=== PATIENT | male | born 1980 | race Caucasian/White ===

== ENCOUNTER 2016-11-01 08:29 | Emergency (ER) | payer MEDICAID ==
[~2016-11-01] VITALS: Ht 167.6 cm; Wt 83.0 kg
[2016-11-01 08:32] VITALS: Ht 167.6 cm; Wt 83.0 kg
[2016-11-01] MEDS ORDERED: ACETAMINOPHEN 325 MG TAB PO STA (09:07)
[2016-11-01] MEDS ORDERED: SOD CHLORIDE 0.9% 500 ML IV STA (09:07)
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
--- NOTE | 2016-11-01 09:49 | RADRPT ---
PROCEDURE: CT Brain without contrast. CLINICAL INDICATION: Syncope, headache, nausea and vomiting. TECHNIQUE: A CT of the brain was performed on a GE [employer]ance 64-slice CT scanner utilizing axial imaging from the skull base through the vertex without IV contrast. Multiplanar reformatted images were made. Images were reviewed on a PACS workstation. The CTDIvol is 43.16 mGy and the DLP is 720 .23 mGycm. One or the following dose reduction techniques were used: -Automated exposure control. -Adjustment of the mA and/or KV according to patient's size. -Use of iterative reconstruction technique. COMPARISON: None FINDINGS: There is no intracranial hemorrhage, mass effect, or midline shift. No extra-axial fluid collection is seen. The ventricles and sulci are normal in size and configuration. The density of the brain is normal, and the mcintosh white matter differentiation appears well-preserved. The visualized paranasal sinuses and osseous structures are grossly unremarkable. IMPRESSION: 1. No acute intracranial process identified. RPTAT: [facility] Physician Tess Date Time Electronically viewed and signed by Physician Tess on 11/01/2016 09:49 /
--- NOTE | 2016-11-01 09:55 | RADRPT ---
PROCEDURE: Chest Radiograph. CLINICAL INDICATION: Syncope TECHNIQUE: Single frontal chest radiograph. COMPARISON: 05/14/2013 FINDINGS: The cardiomediastinal silhouette is within normal limits. No infiltrate or effusion is seen. Th e bones are intact. IMPRESSION: 1. Unremarkable chest radiograph. RPTAT: KK .Kalen Tenorio MD, MD Date Time Electronically viewed and signed by .Kalen Tenorio MD, on 11/01/2016 09:55 .B/
[2016-11-01 09:57] LABS: ADD SCAN DIFF NO
[2016-11-01 10:05] LABS: BASOPHILS % 0.2 % (0.0-2.0); EOSINOPHILS # 0.1 10^3/ul (0.0-0.5); EOSINOPHILS % 0.8 % (0.0-7.0); HEMATOCRIT 49.5 % (42.0-52.0); HEMOGLOBIN 16.3 g/dl (14.0-18.0); LYMPHOCYTES # 1.7 10^3/ul (0.8-2.9); MEAN CORPUSCULAR HEMOGLOBIN 28.5 pg (29.0-33.0); MEAN CORPUSCULAR HGB CONC 32.9 g/dl (32.0-37.0); MEAN CORPUSCULAR VOLUME 86.5 fl (82.0-101.0); MEAN PLATELET VOLUME 9.4 fl (7.4-10.4); MONOCYTE # 0.6 10^3/ul (0.3-0.9); MONOCYTES % 6.8 % (0.0-11.0); PLATELET COUNT 299 10^3/UL (140-415); RED BLOOD COUNT 5.72 10^6/ul (4.70-6.10); RED CELL DISTRIBUTION WIDTH 13.8 % (11.5-14.5); WHITE BLOOD COUNT 8.3 10^3/ul (4.8-10.8)
[2016-11-01 10:23] LABS: ANION GAP 16 (8-16); BLOOD UREA NITROGEN 16 mg/dl (7-20); CALCIUM 9.5 mg/dl (8.4-10.2); CARBON DIOXIDE 27 mmol/L (21-31); CHLORIDE 101 mmol/L (97-110); CREATININE 0.82 mg/dl (0.61-1.24); GLUCOSE 106 mg/dl (70-220); POTASSIUM 3.9 mmol/L (3.5-5.1); SODIUM 140 mmol/L (135-144)
[2016-11-01 10:27] LABS: ETHANOL < 10.0 mg/dl
[2016-11-01 10:45] LABS: TROPONIN-I < 0.012 ng/ml (0.00-0.12)
[2016-11-01 12:41] VITALS: BP 111/72; PULSE 60; RESP 16
== END 2016-11-01 12:42 | disposition home or self-care (01) ==
LOC: E/R 08:29
DX: R56.9 Unspecified convulsions (principal); R55 Syncope and collapse; R07.89 Other chest pain
CPT/HCPCS: 36415; 70450; 71010; 80048; 80306; 82962; 84484; 85025; 93005; J7040; Z7502; Z7610

== ENCOUNTER 2017-05-02 22:34 | Emergency (ER) | payer SELFPAY ==
[~2017-05-02] VITALS: Ht 167.6 cm; Wt 79.7 kg
[2017-05-02 22:40] VITALS: Ht 167.6 cm; Wt 79.7 kg
[2017-05-03] MEDS ORDERED: KETOROLAC 30 MG INJ IV STA (00:16)
[2017-05-03 00:45] LABS: BASOPHILS % 0.2 % (0.0-2.0); EOSINOPHILS # 0.3 10^3/ul (0.0-0.5); EOSINOPHILS % 3.3 % (0.0-7.0); HEMATOCRIT 46.4 % (42.0-52.0); HEMOGLOBIN 15.7 g/dl (14.0-18.0); LYMPHOCYTES # 3.2 10^3/ul (0.8-2.9); LYMPHOCYTES % 39.5 % (15.0-51.0); MEAN CORPUSCULAR HEMOGLOBIN 28.9 pg (29.0-33.0); MEAN CORPUSCULAR HGB CONC 33.8 g/dl (32.0-37.0); MEAN CORPUSCULAR VOLUME 85.3 fl (82.0-101.0); MEAN PLATELET VOLUME 9.4 fl (7.4-10.4); MONOCYTE # 0.8 10^3/ul (0.3-0.9); MONOCYTES % 9.4 % (0.0-11.0); NEUTROPHIL # 3.9 10^3/ul (1.6-7.5); NEUTROPHILS % 47.4 % (39.0-77.0); PLATELET COUNT 288 10^3/UL (140-415); RED BLOOD COUNT 5.44 10^6/ul (4.70-6.10); RED CELL DISTRIBUTION WIDTH 13.3 % (11.5-14.5); WHITE BLOOD COUNT 8.2 10^3/ul (4.8-10.8)
[2017-05-03 01:20] LABS: ALBUMIN 4.5 g/dl (3.3-4.9); ALBUMIN/GLOBULIN RATIO 1.21; BILIRUBIN,INDIRECT 0.3 mg/dl (0-1.1); BILIRUBIN,TOTAL 0.3 mg/dl (0.2-1.3); CALCIUM 9.7 mg/dl (8.4-10.2); CREATININE 0.91 mg/dl (0.61-1.24); TOTAL PROTEIN 8.2 g/dl (6.1-8.1)
[2017-05-03 01:28] LABS: ADD UMIC YES; UR ASCORBIC ACID NEGATIVE (NEGATIVE); UR BILIRUBIN (Dip) NEGATIVE (NEGATIVE); UR BLOOD (Dip) 2+ mg/dL (NEGATIVE); UR CLARITY CLEAR (CLEAR); UR COLOR YELLOW (YELLOW); UR GLUCOSE (Dip) NEGATIVE (NEGATIVE); UR KETONES (Dip) NEGATIVE (NEGATIVE); UR LEUKOCYTE ESTERASE (Dip) NEGATIVE Leu/ul (NEGATIVE); UR NITRITE (Dip) NEGATIVE (NEGATIVE); UR RBC 2 /HPF (0-5); UR SPECIFIC GRAVITY (Dip) 1.018 (1.003-1.030); UR TOTAL PROTEIN (Dip) NEGATIVE (NEGATIVE); UR UROBILINOGEN (Dip) NEGATIVE (NEGATIVE)
--- NOTE | 2017-05-03 02:37 | RADRPT ---
PROCEDURE: US Renal CLINICAL INDICATION: Pain TECHNIQUE: Multiple sonographic images of the kidneys and bladder were obtained. Evaluation of th e kidneys and bladder was performed as well with mcintosh scale and color and Doppler evaluation using a curved array transducer. The images were reviewed on a high-resolution PACS workstation. COMPARISON: No prior studies are available for comparison. FINDINGS: The right kidney measures 10.1 cm. The left kidney measures 11.9 cm. Renal cortical echogenicity is within normal limits. There is no mass, calculus, or obstructive uropathy. No perinephric fluid c ollection is seen. The bladder is unremarkable. IMPRESSION: 1. Unremarkable renal ultrasound. RPTAT: HMVK .Porfirio Thorne MD, Date Time Electronically viewed and signed by .Porfirio Thorne MD, MD on 05/03/2017 02:37 .K/
[2017-05-03] MEDS ORDERED: ACET500C5 PO (02:45)
--- NOTE | 2017-05-03 02:55 | ERD ---
ER Documentation Chief Complaint Chief Complaint left abdominal pain x 3 days HPI 29-year-old male complaining of left lower quadrant abdominal pain 3 days. Patient stated the pain is constant, but worse after he eats. His last meal was at 4 PM. He took Zantac at home without relief of pain. The pain is sharp. Patient stated that he felt bloated today. Patient has regular bowel movements, last BM was this morning. Denies fever or chills. Denies dysuria. Denies any prior medical history. ROS All systems reviewed and are negative except as per history of present illness. Medications Home Meds Active Scripts Acetaminophen* (Tylophen*) 500 Mg Capsule, 1 CAP PO Q6H Y for PAIN AND OR ELEVATED TEMP, #20 CAP Prov:KAILASH WISEMAN JET INSPECTOR 05/03/17 Allergies Allergies: Coded Allergies: No Known Allergy (Unverified , 05/02/17) PMhx/Soc History of Surgery: No Anesthesia Reaction: No Hx Neurological Disorder: No Hx Respiratory Disorders: No Hx Cardiac Disorders: No Hx Psychiatric Problems: No Hx Miscellaneous Medical Probl: No Hx Alcohol Use: No Hx Substance Use: No Hx Tobacco Use: No Smoking Status: Never smoker Physical Exam Vitals Vital Signs Date Time Temp Pulse Resp B/P Pulse Ox O2 Delivery O2 Flow Rate FiO2 05/02/17 22:40 98.8 72 20 143/72 100 Physical Exam General: Well-developed, well-nourished, conscious and coherent, in no distress Skin: Warm and dry without rash, good texture and turgor Head: Normocephalic without evidence of trauma Eyes: Sclera and conjunctivae normal; pupils equal, round, and reactive to light; extraocular movements are intact Chest: Normal AP diameter. Good expansion without retractions. Nontender. Lungs are clear to auscultate bilaterally with good tidal volume Heart: Regular rate and rhythm. No murmur, rub, or gallops heard Abdomen: Soft, left lower quadrant tenderness without masses, guarding, or rebound. Bowel sounds are active. No hepatosplenomegaly Back: Without spinal or CVA tenderness Pelvis: Nontender to palpation and stable to compression : Uncircumsized male. Penis normal, no penile discharge. Normal scrotum, no mass noted. No inguinal hernia. Extremities: Full range of motion. Good strength bilaterally. No clubbing, cyanosis, or edema. Peripheral pulses are intact. Sensation intact Neuro: Alert and oriented 4, GCS 15. Cranial nerves grossly intact. Motor and sensory exams nonfocal. Moves all extremities. Speech clear. Gait normal Result Diagram: 05/03/17 0020 05/03/17 0020 Results 24 hrs Laboratory Tests Test 05/03/17 00:20 White Blood Count 8.210^3/ul Red Blood Count 5.4410^6/ul Hemoglobin 15.7g/dl Hematocrit 46.4% Mean Corpuscular Volume 85.3fl Mean Corpuscular Hemoglobin 28.9pg Mean Corpuscular Hemoglobin Concent 33.8g/dl Red Cell Distribution Width 13.3% Platelet Count 80871^3/UL Mean Platelet Volume 9.4fl Neutrophils % 47.4% Lymphocytes % 39.5% Monocytes % 9.4% Eosinophils % 3.3% Basophils % 0.2% Nucleated Red Blood Cells % 0.0/100WBC Neutrophils # 3.910^3/ul Lymphocytes # 3.210^3/ul Monocytes # 0.810^3/ul Eosinophils # 0.310^3/ul Basophils # 0.010^3/ul Nucleated Red Blood Cells # 0.010^3/ul Urine Color YELLOW Urine Clarity CLEAR Urine pH 5.0 Urine Specific [place] 1.018 Urine Ketones NEGATIVEmg/dL Urine Nitrite NEGATIVEmg/dL Urine Bilirubin NEGATIVEmg/dL Urine Urobilinogen NEGATIVEmg/dL Urine Leukocyte Esterase NEGATIVELeu/ul Urine Microscopic RBC 2/HPF Urine Microscopic WBC 1/HPF Urine Hemoglobin 2+mg/dL Urine Glucose NEGATIVEmg/dL Urine Total Protein NEGATIVEmg/dl Sodium Level 141mmol/L Potassium Level 4.0mmol/L Chloride Level 101mmol/L Carbon Dioxide Level 29mmol/L Anion Gap 15 Blood Urea Nitrogen 19mg/dl Creatinine 0.91mg/dl Glucose Level 99mg/dl Calcium Level 9.7mg/dl Total Bilirubin 0.3mg/dl Direct Bilirubin 0.00mg/dl Indirect Bilirubin 0.3mg/dl Aspartate Amino Transf (AST/SGOT) 33IU/L Alanine Aminotransferase (ALT/SGPT) 35IU/L Alkaline Phosphatase 98IU/L Total Protein 8.2g/dl Albumin 4.5g/dl Globulin 3.70g/dl Albumin/Globulin Ratio 1.21 Lipase 82U/L Current Medications Medications (Trade) Dose Ordered Sig/Betty Route PRN Reason Start Time Stop Time Status Last Admin Dose Admin Ketorolac Tromethamine (Toradol) 30 mg ONCE STAT IV 05/03/17 00:16 05/03/17 00:18 DC 05/03/17 00:31 PROCEDURE: US Renal CLINICAL INDICATION: Pain TECHNIQUE: Multiple sonographic images of the kidneys and bladder were obtained. Evaluation of the kidneys and bladder was performed as well with mcintosh scale and color and Doppler evaluation using a curved array transducer. The images were reviewed on a high-resolution PACS workstation. COMPARISON: No prior studies are available for comparison. FINDINGS: The right kidney measures 10.1 cm. The left kidney measures 11.9 cm. Renal cortical echogenicity is within normal limits. There is no mass, calculus, or obstructive uropathy. No perinephric fluid collection is seen. The bladder is unremarkable. IMPRESSION: 1. Unremarkable renal ultrasound. RPTAT: HMVK .Porfirio Thorne MD, MD Date Time Electronically viewed and signed by .Porfirio Thorne MD, on 05/03/2017 02:37 .K/ CC: KAILASH WISEMAN JET INSPECTOR Procedures/MDM Well-appearing 37-year-old male present ED with left lower quadrant abdominal pain 3 days. Patient was given Toradol in the ED for pain. Patient reports relief of pain after Toradol. CBC, CMP, and lipase are unremarkable. UA showed 2+ hemoglobin, otherwise negative. I suspect patient's pain may be due to kidney stone urolithiasis. Renal ultrasound was obtained, no hydronephrosis were seen. I doubt acute appendicitis, cholecystitis, pancreatitis or other acute abdomen. Patient has normal scrotal exam. I doubt testicular torsion. Patient appears well, stable for discharge and outpatient management. Medical decision making shared with patient and family. Education provided to patient and family. Patient and family expressed understanding of the plan. Medications on discharge: Tylenol. Follow-up: Primary care provider in 2-3 days or return to ED if worse. Disclaimer: Inadvertent spelling and grammatical errors are likely due to EHR/ dictation software use and do not reflect on the overall quality of patient care. Also, please note that the electronic time recorded on this note does not necessarily reflect the actual time of the patient encounter. Departure Diagnosis: Primary Impression: Abdominal pain Abdominal location: left lower quadrant Qualified Code: R10.32 - Left lower quadrant pain Condition: Stable Patient Instructions: Abdominal Pain, Kidney Stone W/ Colic [facility] Usted se whittaker hecho un examen mdico de control que le indica que no est en latha condicin que requiera tratamiento urgente en el Departamento de Emergencia. Un estudio ms profundo y el tratamiento de diana condicin pueden esperar sin ningn riesgo hasta que usted sea atendida/o en el consultorio de diana mdico o latha cl leonardo. Es responsabilidad suya arreglar latha handy para el seguimiento del rhona. MANEJO DE CONDICIONES NO URGENTES EN EL FUTURO 1) Si usted tiene un mdico de atencin primaria: Usted debera llamar a diana mdico de atencin primaria antes de venir al departamento de emergencia. Despus de las horas de consultorio, diana doctor o diana asociado/a est disponible por telfono. El mdico o enfermero de shukri en el servicio telefnico puede asesorarle por melissa medio para atender el problema, o rhona contrario se puede programar latha handy. 2) Si usted no tiene un mdico de atencin primaria: Llame al mdico o clnica de referencia que aparece abajo storm las horas de consultorio para hacer latha handy para que le vean. CLINICAS: [facility] [id number] [facility] 722 [id number] [facility] [phone] [facility] [phone] [facility]. [place] [phone] [address] [facility]. [phone] [address] Additional Instructions: Llame al doctor MAANA y anastasiya latha HANDY PARA DENTRO DE 2-3 SHARP.Dgale a la secretaria que nosotros le instruimos hacer esta handy.Avise o llame si diana condicin se empeora antes de la handy. Regresa aqui si peor o no mejor. KAILASH WISEMAN. ROSEMARY May 03, 2017 02:55
== END 2017-05-03 03:05 | disposition home or self-care (01) ==
LOC: FTE 22:34
DX: R10.32 Left lower quadrant pain (principal)
CPT/HCPCS: 36415; 76775; 80053; 81001; 83690; 85025; 96374; 99285; J1885